=== PATIENT | female | born 1995 | race Caucasian/White ===

== ENCOUNTER 2017-04-30 19:05 | Emergency (ER) | payer SELFPAY ==
[2017-04-30 20:01] LABS: Basophils % (Auto) 0.3 % (0.0-1.8); Eosinophils % (Auto) 0.7 % (0.0-4.3); Hemoglobin 13.2 gm/dl (10.1-14.3); Mean Corpuscular HGB Conc 35 % (30-34); Mean Corpuscular Hemoglobin 29 pg (28-32); Mean Corpuscular Volume 85 fl (79-97); Platelet Count 240 K/mm3 (140-440); Red Blood Count 4.48 M/mm3 (3.65-5.03); Red Cell Distribution Width 12.7 % (13.2-15.2); White Blood Count 9.5 K/mm3 (4.5-11.0)
[2017-04-30 20:04] VITALS: BP 117/54
[2017-04-30 20:16] LABS: Alanine Aminotransferase 7 units/L (7-56); Albumin 3.8 g/dL (3.9-5); Albumin/Globulin Ratio 1.2 %; Alkaline Phosphatase 46 units/L (35-129); Anion Gap 18 mmol/L; Blood Urea Nitrogen 4 mg/dL (7-17); Calcium 8.6 mg/dL (8.4-10.2); Carbon Dioxide 21 mmol/L (22-30); Chloride 102.1 mmol/L (98-107); Glucose 90 mg/dL (65-100); Lipase 17 units/L (13-60); Potassium 3.4 mmol/L (3.6-5.0); Sodium 138 mmol/L (137-145); Total Protein 6.9 g/dL (6.3-8.2)
[2017-04-30 20:28] LABS: Bacteria,Urine 1+ /HPF (Negative); Bilirubin,Urine NEG (Negative); Blood,Urine MOD (Negative); Ketones,Urine NEG (Negative); Leukocyte Esterase,Urine NEG (Negative); Mucus,Urine FEW /HPF; Nitrite,Urine NEG (Negative); Protein,Urine <15 mg/dL mg/dL (Negative); WBC,Urine < 1.0 /HPF (0.0-6.0)
--- NOTE | 2017-04-30 22:58 | Ultrasound Report ---
FINAL REPORT EXAM: US OB TRANSVAGINAL HISTORY: pelvic pain, Vaginal blood spotting TECHNIQUE: Ultrasound obstetrical transvaginal Doppler evaluation PRIORS: None. FINDINGS: There is gestational sac within the uterus There is a pole with crown-rump length of 1.3 centimeters corresponding to estimated gestational age of 7 weeks 4 days. Based on today's exam estimated date of delivery is December 13, 2017 There is a 2.0 x 1.0 x 1.4 centimeter hypoechoic focus adjacent to the sac consistent with subchorionic hemorrhage. cardiac activity is present with heart rate of 145 beats per minute. A yolk sac is identified. Right ovary is 2.9 x 2.2 x 1.9 centimeters Left ovary is 2.8 x 2.1 x 2.6 centimeters Noted is a 1.9 centimeter complex left ovarian cyst No free fluid identified in the cul-de-sac IMPRESSION: Single live intrauterine gestation estimated at 7 weeks 4 days Moderate subchorionic hemorrhage
--- NOTE | 2017-04-30 22:59 | Ultrasound Report ---
FINAL REPORT EXAM: US OB \T\lt; = 14 WEEKS FETUS HISTORY: pelvic pain, Vaginal blood spotting TECHNIQUE: Ultrasound obstetrical transabdominal PRIORS: None. FINDINGS: There is gestational sac within the uterus There is a pole with crown-rump length of 1.3 centimeters corresponding to estimated gestational age of 7 weeks 4 days. Based on today's exam estimated date of delivery is December 13, 2017 There is a 2.0 x 1.0 x 1.4 centimeter hypoechoic focus adjacent to the sac consistent with subchorionic hemorrhage. cardiac activity is present with heart rate of 145 beats per minute. A yolk sac is identified. Right ovary is 2.9 x 2.2 x 1.9 centimeters Left ovary is 2.8 x 2.1 x 2.6 centimeters Noted is a 1.9 centimeter complex left ovarian cyst No free fluid identified in the cul-de-sac IMPRESSION: Single live intrauterine gestation estimated at 7 weeks 4 days
--- NOTE | 2017-05-01 02:02 | Emergency Department Report ---
ED Female HPI - General Chief complaint: Abdominal Pain Stated complaint: 3 MONTHS ABDOMINAL PAIN, BLEEDING. Time Seen by Provider: 05/01/17 01:41 Source: patient Mode of arrival: Ambulatory Limitations: No Limitations - History of Present Illness Initial comments: 21 years old female 3 para 1, 7 weeks complaining of vaginal spotting that is started yesterday. Vaginal bleeding is stopped now. No abdominal cramping,no other complaint. MD Complaint: vaginal bleeding -: Last night - Related Data Allergies Allergy/AdvReac Type Severity Reaction Status Date / Time No Known Allergies Allergy Verified 04/30/17 19:30 ED Review of Systems ROS: Stated complaint: 3 MONTHS ABDOMINAL PAIN, BLEEDING. Other details as noted in HPI Comment: All other systems reviewed and negative Constitutional: denies: chills, fever Respiratory: denies: shortness of breath Cardiovascular: denies: chest pain Gastrointestinal: denies: abdominal pain, nausea, vomiting ED Past Medical Hx - Past Medical History Previous Medical History?: No - Surgical History Past Surgical History?: No - Social History Smoking Status: Never Smoker Substance Use Type: None ED Physical Exam - General Limitations: No Limitations General appearance: alert, in no apparent distress - Respiratory Respiratory exam: Present: normal lung sounds bilaterally - Cardiovascular Cardiovascular Exam: Present: regular rate, normal rhythm, normal heart sounds - GI/Abdominal GI/Abdominal exam: Present: soft. Absent: distended, tenderness, guarding, rebound, rigid, mass, pulsatile mass - Back Exam Back exam: Absent: CVA tenderness (R), CVA tenderness (L) - Neurological Exam Neurological exam: Present: alert, oriented X3 ED Course Vital Signs 04/30/17 19:25 Temperature 98.4 F Pulse Rate 67 Respiratory 20 Rate Blood Pressure 117/54 [Right] O2 Sat by Pulse 99 Oximetry ED Medical Decision Making - Lab Data Result diagrams: 04/30/17 19:34 04/30/17 19:34 Critical care attestation.: If time is entered above; I have spent that time in minutes in the direct care of this critically ill patient, excluding procedure time. ED Disposition Clinical Impression: Vaginal bleeding before 22 weeks gestation Disposition: DC-01 TO HOME OR SELFCARE Is pt being admited?: No Condition: Stable Instructions: Abdominal Pain (ED) Referrals: PRIMARY CARE, [Primary Care Provider] - 3-5 Days
== END 2017-05-01 02:13 | disposition home or self-care (01) ==
LOC: ED 19:05
DX: O46.91 Antepartum hemorrhage, unspecified, first trimester (principal); Z3A.01 Less than 8 weeks gestation of pregnancy
CPT/HCPCS: 36415; 76801; 76817; 80053; 81001; 83690; 84702; 84703; 85025; 99284